=== PATIENT | male | born 1980 | race Two or more races ===

== ENCOUNTER 2024-11-18 05:41 | Emergency (ER) | payer OTHER, SELFPAY ==
[2024-11-18 05:46] VITALS: BP 171/106; PULSE 89; RESP 17; TEMP 36.9; O2SAT 99
[2024-11-18 05:47] VITALS: PULSE 100; RESP 20; O2SAT 95
[2024-11-18 05:54] VITALS: BMI 41.5
[2024-11-18 06:05] VITALS: PULSE 85; RESP 20; O2SAT 100
[2024-11-18] MEDS: ALBUTEROL/IPRATROPIUM (Duoneb) RT SOL 3 ML NEBU INH (06:05)
[2024-11-18] MEDS: DiphenhydrAMINE 25 MG CAPSULE PO ×2 (06:09→06:54)
--- NOTE | 2024-11-18 06:35 | EDNOTE_ITS ---
ED Allergic Reaction RME/HPI General Chief complaint: Allergic Reaction Stated complaint: SOB Time Seen by Provider: 11/18/24 06:32 Arrival date/time: 11/18/24 05:41 RME / HPI RME / HPI narrative: 44 year old male with history of hypertension and seasonal allergies presents to the ED for evaluation of possible allergic reaction beginning at 05:00 am today. States he woke up feeling my throat was closing up accompanied by difficulty breathing, difficulty swallowing, and an allergy cough . Denies fevers, chills, chest pain, abdominal pain, n/v/d, urinary symptoms, or rash. No history of similar symptoms. No previous intubation. Related Data Previous Rx's ?Medication ?Instructions ?Recorded albuterol sulfate 90 mcg/actuation 2 inh inhalation Q4H PRN shortness 11/18/24 aerosol inhaler of breath or wheezing #8.5 grams diphenhydramine HCl 25 mg capsule 25 mg PO Q6H PRN allergic reaction 11/18/24 (Benadryl) #14 caps prednisone 20 mg tablet 20 mg PO QDAY 5 days #5 tabs 11/18/24 Allergies Allergy/AdvReac Type Severity Reaction Status Date / Time No Known Allergies Allergy Verified 11/18/24 05:48 Review of Systems Review of Systems Narrative Review of Systems: GEN: No fever, no chills, no weight loss EYES: No discharge, no visual changes, no pain HEENT: No ear pain, no congestion, +felt throat closing and difficulty swallowing PULM: +shortness of breath, no cough, no congestion CV: No chest pain, no dyspnea on exertion, no palpitations GI: No nausea, no vomiting, no diarrhea, no pain, no constipation : No frequency, no urgency and no dysuria MUSC/SKEL No joint pain, no back pain SKIN: No rash NEURO: No weakness, no headache Past Medical History Past Medical History CARDIAC: Positive Hypertension; Negative Congestive Heart Failure RESPIRATORY: Negative Chronic Obstructive Pulmonary Disease (COPD) GENITOURINARY: Negative Renal Disease ENDOCRINE: Negative Diabetes Mellitus Type 1 or Diabetes Mellitus Type 2 Social History SMOKING STATUS: Never smoker ED Exam Narrative Physical exam: GENERAL APPEARANCE: Well hydrated, well nourished, in no acute distress. Morbidly obese. VITALS: All vitals were reviewed and the pulse ox is 100% on room air which is normal according to my interpretation. HEENT: Normocephalic, atramatic, EOMI, EACs are patent. There is no bulge or retraction. Uvula is edematous, midline, no drooling, no trismus, speaking full sentences. Throat without erythema or exudate. Moist oromucosa. No jaundice NECK: Supple, no JVD or bruits. CARDIOVASCULAR: Heart regular without S3-S4 or murmur. No rubs or gallops. LUNGS/CHEST: Clear to auscultation bilaterally. No rales, rhonchi, or wheezing. Normal inspection. ABDOMEN: Soft, obese, nontender, with normal bowel sounds. No pulsatile masses. No rebound, rigidity, or guarding. No incarcerated hernia. Normal inspection and palpation. EXTREMITIES: Normal inspection and palpation. No edema, clubbing, or cyanosis. Intact CSM SKIN: Warm and dry without rashes. Normal inspection. MUSCULOSKELETAL: Normal inspection. No gross deformity, full ROM all extremities NEURO: Alert and oriented x3. Cranial nerves II through XII grossly intact. There are no other motor or sensory deficits noted. PSYCHIATRIC: Normal mood and affect. No psychosis. Course Quality Measures none Orders Category Date Time Status Albuterol/Ipratr Rt Dulce [Duoneb Rt Dulce] Med 11/18/24 05:49 Discontinued 3 ml INH X1 ONE Dexamethasone Inj [Decadron Inj] Med 11/18/24 06:43 Discontinued 10 mg PO X1 ONE DiphenhydrAMINE [Benadryl] Med 11/18/24 05:49 Discontinued 25 mg PO X1 ONE DiphenhydrAMINE [Benadryl] Med 11/18/24 06:43 Discontinued 25 mg PO X1 ONE Vital Signs Vital signs: Vital Signs Temperature 98.5 F 11/18/24 05:46 Pulse Rate 89 11/18/24 05:46 Respiratory Rate 17 11/18/24 05:46 Blood Pressure 171/106 H 11/18/24 05:46 Pulse Oximetry (%) 99 11/18/24 05:46 Oxygen Delivery Method Room Air 11/18/24 05:46 Allergic Reaction MDM Narrative MDM Narrative:: ILindsey, am scribing for and in the presence of Dr. Fritz. On exam the patient has a uvular edema. But no drooling. No trismus. No stridor. He is talking in full sentences. O2 saturation is perfectly normal. We gave the patient Benadryl 50 mg by mouth and Decadron 10 mg by mouth, along with a nebulizer treatment. He was put here under observation for 4 hours. At 11:52 AM, the patient is alert awake oriented x 4 GCS of 15. He states that he is feeling much better and wants to go home. He will is much better looking. It is smaller and sharper. No drooling. No trismus. No stridor. Full sentences. is driving him home. In retrospect, he stated that he has been having this kind of problem before. He wants me to let him know the name of the medication that we gave him that works well. Patient data External records reviewed:: EMS form Clinical information provided by:: patient Social determinants that could affect healthcare access:: none Patient has the following chronic illnesses:: HTN, seasonal allergies How is presenting disease/condition affected by chronic disease/condition?: exacerbated by Evaluation data The following diagnostics were reviewed and interpreted by me:: other (specify) (None ) Lab and/or radiology exams considered but not ordered:: None Interpretation Summary: As noted above Medications / Prescriptions Medications or Prescriptions considered but not ordered:: None Medication administrations:: Medication Administration History Discontinued Medications Albuterol/Ipratropium (Albuterol/Ipratropium (Duoneb) Rt Dulce 3 Ml Nebu) 3 ml INH X1 ONE Stop: 11/18/24 05:50 Last Admin: 11/18/24 06:05 Dose: 3 ml Documented By: YUDITH Dexamethasone Sodium Phosphate (Dexamethasone Sod Phos Inj 10 Mg/Ml Vial) 10 mg PO X1 ONE Stop: 11/18/24 06:44 Last Admin: 11/18/24 06:54 Dose: 10 mg Documented By: SHANIA Diphenhydramine HCl (Diphenhydramine 25 Mg Capsule) 25 mg PO X1 ONE Stop: 11/18/24 05:50 Last Admin: 11/18/24 06:09 Dose: 25 mg Documented By: RAJEEV Diphenhydramine HCl (Diphenhydramine 25 Mg Capsule) 25 mg PO X1 ONE Stop: 11/18/24 06:44 Last Admin: 11/18/24 06:54 Dose: 25 mg Documented By: SHANIA See above Consultations Consultation(s) initiated? (list below): No Diagnosis Differential Diagnosis allergic reaction: allergic reaction and contact dermatitis Most likely diagnosis given after review of the tests above:: Uvular edema Admission Indicated Admission indicated?: not indicated Admission Request Was there a request for admission?: No Disposition Plan Disposition Plan: Discharge Discharge Attestation Discharge Attestation: The patient and all family members were given an opportunity to ask questions and understood the discharge instructions. Discharge instructions specifically effects, indications for sooner follow up or return to the emergency department, and the expected course of current diagnosis. Patient condition: Stable Discharge Plan Plan Patient Disposition: HOME (Self Care) Disposition Comment: Stable and improved Prescriptions/Referrals Prescriptions/Med Rec: New diphenhydramine HCl [Benadryl] 25 mg capsule 25 mg PO Q6H PRN (Reason: allergic reaction) Qty: 14 0RF prednisone 20 mg tablet 20 mg PO QDAY 5 Days Qty: 5 0RF albuterol sulfate 90 mcg/actuation HFA aerosol inhaler 2 inh inhalation Q4H PRN (Reason: shortness of breath or wheezing) Qty: 8.5 0RF Referrals: Bang Sandoval [Primary Care Provider] - In 1 week Problem List Clinical Impression: Uvular edema Patient/Caregiver Discharge Instructions Education Materials: Allergy Overview Additional Instructions: Take medications as prescribed. Including Benadryl, inhaler if needed and steroid. See your doctor for recheck in 3 days. Return the nearest ER if any problem Print Language: Gabonese Stand Alone Forms: [employer] Award Info., Patient Portal Info Letter
--- NOTE | 2024-11-18 06:46 | PC.NURSE ---
In to assess pt. pt biba with c/o sob, and feeling throat closing , that awoken him aprox 4 am. pt states sob improved but still feels like he is having trouble swollowing. pt denies any allergies other than seasonal. pt denies any recent illnesses. pt placed on cardiac monitoring. pt updated on plan of care. Plan of care ongoing at this time. call light within reach.
[2024-11-18] MEDS: DEXAMETHASONE SOD PHOS INJ 10 MG/ML VIAL PO (06:54)
--- NOTE | 2024-11-18 07:31 | PC.NURSE ---
Pt sitting up on stretcher, alert GCS 15, denies any pain or discomfort. Reports he is feeling much better after medications, no longer feeling sob.
[2024-11-18 08:52] VITALS: BP 152/95; PULSE 65; RESP 13; TEMP 36.7; O2SAT 98
[2024-11-18 10:00] VITALS: BP 135/81; PULSE 79; RESP 13; TEMP 36.6; O2SAT 97
[2024-11-18 12:02] VITALS: BP 140/83; PULSE 76; RESP 18; TEMP 36.7; O2SAT 98
== END 2024-11-18 12:05 | disposition home or self-care (01) ==
PROVIDERS: Emergency Provider Emergency Medicine
DX: R60.9 Edema, unspecified (principal)
CPT/HCPCS: 94640; 99283; A9270; J1100